=== PATIENT | female | born 1940 | race Caucasian/White ===

== ENCOUNTER 2019-12-05 17:14 | Emergency (ER) | payer MEDICARE, OTHER ==
--- NOTE | 2019-12-05 17:43 | EDM.PDOC ---
ED HPI GENERAL MEDICAL PROBLEM - General Chief Complaint: Lower Extremity Injury/Pain Stated Complaint: FELL/LT ANKLE PAIN Time Seen by Provider: 12/05/19 17:27 Source of Information: Reports: Patient History Limitations: Reports: No Limitations - History of Present Illness INITIAL COMMENTS - FREE TEXT/NARRATIVE: Patient is a 79 year old female presenting to the ER with c/o left foot and ankle pain. She states that today she was taking her garbage out when she slipped and fell on the ice. She is unsure exactly how she fell, but thinks that she may have landed on her left foot. She denies hitting her head and did not have a LOC. She has been having pain and difficulty with ambulation since the fall. She reports that she has been icing and elevating the extremity. She took tylenol and aspirin prior to coming to ER with limited improvement. She denies any previous fractures to this extremity. Left Foot Pain Score (Numeric/FACES): 10 - Related Data Allergies Allergy/AdvReac Type Severity Reaction Status Date / Time nitrofurantoin Allergy Liver Verified 12/05/19 17:28 Problems Sulfa (Sulfonamide Allergy Hives Verified 12/05/19 17:28 Antibiotics) Home Meds: Home Meds Amoxicillin/Clavulanate K [Augmentin 875 MG] 1 tab PO BID #19 tablet 08/19/13 [Rx] Baby Aspirin. 08/19/13 [History] Metoprolol. 08/19/13 [History] Simvastatin. 08/19/13 [History] Past Medical History Cardiovascular History: Reports: Hypertension Genitourinary History: Reports: Other (See Below) Other Genitourinary History: urinary prolapse [employer] History: Reports: Prolapsed Uterus - Past Surgical History GI Surgical History: Reports: Appendectomy, Cholecystectomy Social & Family History - Tobacco Use Tobacco Use Status *Q: Current Every Day Tobacco User Years of Tobacco use: 30 Packs/Tins Daily: 0.3 Second Hand Smoke Exposure: No - Caffeine Use Caffeine Use: Reports: Coffee - Recreational Drug Use Recreational Drug Use: No Review of Systems - Review of Systems Review Of Systems: See Below Constitutional: Reports: No Symptoms. Denies: Chills, Fever, Weakness Eyes: Reports: No Symptoms Ears: Reports: No Symptoms Nose: Reports: No Symptoms Mouth/Throat: Reports: No Symptoms Respiratory: Reports: No Symptoms Cardiovascular: Reports: No Symptoms GI/Abdominal: Reports: No Symptoms Genitourinary: Reports: No Symptoms Musculoskeletal: Reports: Other (left foot and ankle pain) Skin: Reports: No Symptoms Neurological: Reports: No Symptoms Psychiatric: Reports: No Symptoms ED EXAM, GENERAL - Physical Exam Exam: See Below General Appearance: Alert, WD/WN, No Apparent Distress Respiratory/Chest: No Respiratory Distress, Lungs Clear, Normal Breath Sounds, No Accessory Muscle Use, Chest Non-Tender Cardiovascular: Normal Peripheral Pulses, Regular Rate, Rhythm, No Edema, No Gallop, No JVD, No Murmur, No Rub GI/Abdominal: Normal Bowel Sounds, Soft, Non-Tender, No Organomegaly, No Distention, No Abnormal Bruit, No Mass Extremities: Other (tenderness to palpation throughout the left foot, particularly to the lateral aspect and over the the MTP joint of the great toe. Tenderness also over the lateral aspect of the left ankle. No obivous deformity or ecchymosis. CMS intact distal to the injury.) Neurological: Alert, Oriented, CN II-XII Intact, Normal Cognition, Normal Gait, Normal Reflexes, No Motor/Sensory Deficits Psychiatric: Normal Affect, Normal Mood Skin Exam: Warm, Dry, Intact, Normal Color, No Rash Course - Vital Signs Last Recorded V/S: Last Vital Signs Temp 98.0 F 12/05/19 17:22 Pulse 102 H 12/05/19 17:22 Resp 20 12/05/19 17:22 BP 188/85 H 12/05/19 17:22 Pulse Ox 99 12/05/19 17:22 - Orders/Labs/Meds Orders: Active Orders 24 hr Category Date Time Status Ankle Min 3V Lt [CR] Stat Exams 12/05/19 17:29 Taken Foot Comp Min 3V Lt [CR] Stat Exams 12/05/19 17:29 Taken DME for Discharge [COMM] Routine Oth 12/05/19 18:46 Ordered - Re-Assessments/Exams Free Text/Narrative Re-Assessment/Exam: 12/05/19 18:47 X-ray of the ankle and foot were negative for any bony injuries. There was some mild lateral soft tissue swelling. Discussed with patient that she likely suffering from a sprained ankle. We will provide her with an air splint as well as a walker. If she still has significant pain after 1 week, follow-up with Dr. Aldana. Discharge instructions as documented. Departure - Departure Time of Disposition: 18:47 Disposition: Home, Self-Care 01 Condition: Good Clinical Impression: Ankle sprain Qualifiers: Encounter type: initial encounter Involved ligament of ankle: unspecified ligament Laterality: left Qualified Code(s): S93.402A - Sprain of unspecified ligament of left ankle, initial encounter - Discharge Information *PRESCRIPTION DRUG MONITORING PROGRAM REVIEWED*: No *COPY OF PRESCRIPTION DRUG MONITORING REPORT IN PATIENT DONYA: No Instructions: Ankle Sprain, [id number] Referrals: Des Bolton MD [Primary Care Provider] - Abe Aldana MD [Physician] - Forms: ED Department Discharge Additional Instructions: You were seen in the emergency department today for left foot and ankle pain after slipping on the ice at home. X-rays were completed and showed no fractures. As we discussed, you likely sprained your ankle. You have been provided with an air splint and walker. Recommend nonweightbearing on the ankle for the next couple days. As the pain starts to improve, he can gradually begin to bear weight on the extremity with the splint in place. As the pain reduces, you may begin to ambulate without the use of the splint. If it has been about 7 to 10 days and you are still having significant discomfort, recommend that you follow-up with Dr. Aldana, orthopedist. The number to schedule with him as listed below. You may use [id number] Tylenol and ibuprofen as needed for discomfort. Recommend that you ice and elevate the extremity for the next few days. Return to the ER as needed. Sepsis Event Note (ED) - Evaluation Sepsis Screening Result: No Definite Risk - Focused Exam Vital Signs: Vital Signs Temp Pulse Resp BP Pulse Ox 12/05/19 17:22 98.0 F 102 H 20 188/85 H 99 - My Orders Last 24 Hours: My Active Orders 12/05/19 17:29 Ankle Min 3V Lt [CR] Stat Foot Comp Min 3V Lt [CR] Stat 12/05/19 18:46 DME for Discharge [COMM] Routine - Assessment/Plan Last 24 Hours: My Active Orders 12/05/19 17:29 Ankle Min 3V Lt [CR] Stat Foot Comp Min 3V Lt [CR] Stat 12/05/19 18:46 DME for Discharge [COMM] Routine
== END 2019-12-05 19:15 | disposition home or self-care (01) ==
LOC: JD.ED 17:14
DX: S93.402A Sprain of unspecified ligament of left ankle, initial encounter (principal); I10 Essential (primary) hypertension; F17.210 Nicotine dependence, cigarettes, uncomplicated; Z88.2 Allergy status to sulfonamides; Z88.1 Allergy status to other antibiotic agents; Z90.49 Acquired absence of other specified parts of digestive tract; W00.0XXA Fall on same level due to ice and snow, initial encounter
CPT/HCPCS: 73610-LT; 73630-LT; 99283

== ENCOUNTER 2023-10-08 08:47 | Day surgery (SDC) | payer MEDICARE, OTHER ==
[2023-10-08] MEDS: Ofloxacin 0.3% Ophth Soln 5 ML Bottle EYELF SCH (10:14)
[2023-10-08] MEDS: Brimonidine 0.2% Ophth Soln 5 ML Bottle EYELF SCH (10:16)
[2023-10-08] MEDS: Phenylephrine 2.5% Ophth Soln 2 ML Bot EYELF SCH (10:20)
[2023-10-08] MEDS: Tropicamide 1% Ophth Soln 3 ML Bottle EYELF SCH (10:23)
[2023-10-08] MEDS: Tetracaine HCl/PF 0.5% 4 ML Bottle EYEBOTH SCH (10:51)
[2023-10-08] MEDS: Lidocaine 1% PF 2 ML SDV INJECT SCH (11:04)
[2023-10-08] MEDS: Cefuroxime 10 MG/ML SYRINGE EYELF SCH (11:19)
[2023-10-08] MEDS: Pilocarpine 4% Ophth Soln 15 ML Bot EYELF SCH (11:20)
== END 2023-10-08 11:30 | disposition home or self-care (01) ==
LOC: JD.SDS 08:47
PROVIDERS: ATTEND Ophthalmology
DX: H25.813 Combined forms of age-related cataract, bilateral (principal); H21.81 Floppy iris syndrome; H21.42 Pupillary membranes, left eye; H02.831 Dermatochalasis of right upper eyelid; H02.834 Dermatochalasis of left upper eyelid; H40.033 Anatomical narrow angle, bilateral; H43.813 Vitreous degeneration, bilateral; H16.103 Unspecified superficial keratitis, bilateral; H16.223 Keratoconjunctivitis sicca, not specified as Sjogren's, bilateral; H57.813 Brow ptosis, bilateral; I10 Essential (primary) hypertension; E78.2 Mixed hyperlipidemia; Z79.899 Other long term (current) drug therapy; Z88.2 Allergy status to sulfonamides
CPT/HCPCS: 66982; A9270; J0697; J3490

== ENCOUNTER 2023-11-12 12:00 | Day surgery (SDC) | payer MEDICARE, OTHER ==
[~2023-11-12 12:00] MED LIST: Cefuroxime 10 MG/ML SYRINGE EYERT SCH; Lidocaine 1% PF 2 ML SDV INJECT SCH; Pilocarpine 4% Ophth Soln 15 ML Bot EYERT SCH
[2023-11-12] MEDS: Ofloxacin 0.3% Ophth Soln 5 ML Bottle EYERT SCH (14:15)
[2023-11-12] MEDS: Brimonidine 0.2% Ophth Soln 5 ML Bottle EYERT SCH (14:20)
[2023-11-12] MEDS: Phenylephrine 2.5% Ophth Soln 2 ML Bot EYERT SCH (14:25)
[2023-11-12] MEDS: Tropicamide 1% Ophth Soln 3 ML Bottle EYERT SCH (14:30)
[2023-11-12] MEDS: Tetracaine HCl/PF 0.5% 4 ML Bottle EYEBOTH SCH (15:06)
== END 2023-11-12 15:48 ==
LOC: JD.SDS 12:00
PROVIDERS: ATTEND Ophthalmology
DX: H25.811 Combined forms of age-related cataract, right eye (principal); I10 Essential (primary) hypertension; E78.2 Mixed hyperlipidemia; Z79.899 Other long term (current) drug therapy; Z88.2 Allergy status to sulfonamides
CPT/HCPCS: A9270-GY; J3490